=== PATIENT | female | born 1975 | race Caucasian/White ===

== ENCOUNTER 2021-10-07 18:22 | Emergency (ER) | payer MEDICAID ==
[~2021-10-07] VITALS: Ht 160 cm; Wt 70.5 kg
[~2021-10-07 18:22] MED LIST: ALBU8HFA PO
[2021-10-07 21:54] VITALS: BP 142/87
== END 2021-10-07 21:56 | disposition home or self-care (01) ==
LOC: ER 18:23
DX: J70.5 Respiratory conditions due to smoke inhalation (principal); Z88.5 Allergy status to narcotic agent
CPT/HCPCS: 71045; 99283

== ENCOUNTER 2022-06-13 12:13 | Emergency (ER) | payer MEDICAID ==
[~2022-06-13] VITALS: Ht 160 cm; Wt 70.5 kg
[2022-06-13 12:22] VITALS: BP 127/74
[2022-06-13] MEDS ORDERED: OFLO5DRO LEFTEYE (13:36)
== END 2022-06-13 13:56 | disposition home or self-care (01) ==
LOC: ER 12:14
DX: H10.89 Other conjunctivitis (principal); R51.9 Headache, unspecified; Z88.8 Allergy status to other drugs, medicaments and biological substances; Z79.2 Long term (current) use of antibiotics
CPT/HCPCS: 99283

== ENCOUNTER 2023-07-09 13:42 | Emergency (ER) | payer MEDICAID ==
[~2023-07-09] VITALS: Ht 160 cm; Wt 77.9 kg
[2023-07-09 13:42] VITALS: BP 143/65; PULSE 74; RESP 16; TEMP 98.2; O2SAT 100
[2023-07-09 14:00] LABS: BILIRUBIN,URINE NEGATIVE (Neg); CLARITY,URINE SLIGHTLY CLOUDY (Clear); COLOR,URINE YELLOW (Yellow); GLUCOSE, URINE NEGATIVE (Neg); KETONES,URINE NEGATIVE (Neg); LEUKOCYTE ESTERASE ,URINE LARGE (Neg); NITRITES, URINE NEGATIVE (Neg); OCCULT BLOOD,URINE TRACE-INTACT (Neg); PROTEIN,URINE NEGATIVE (Neg); UROBILINOGEN,URINE 0.2 E.U/dL (0.2-1.0)
[2023-07-09 14:03] LABS: URINE HCG NEGATIVE (NEG)
[2023-07-09 14:04] LABS: UA COLLECTION TYPE CLN CATCH MIDSTREAM
[2023-07-09 14:09] LABS: BACTERIA,URINE FEW /HPF (Neg); RBC,URINE 0-2 /HPF (0-2); SQUAMOUS EPITHELIAL CELL,UR MODERATE /LPF (FEW); WBC,URINE TNTC /HPF (0-4)
[2023-07-09 14:10] LABS: WBC CLUMPS,URINE MANY /HPF (NEGATIVE)
[2023-07-09 14:14] LABS: BASOPHILS % (AUTO) 0.6 % (0-1); EOSINOPHILS # (AUTO) 0.1 X10'3 (0-0.9); HEMATOCRIT 42.8 % (35.0-45.0); HEMOGLOBIN 14.3 g/dl (12.0-16.0); LYMPHOCYTES # (AUTO) 1.5 X10'3 (1.1-4.8); LYMPHOCYTES % (AUTO) 25.4 % (21-51); MEAN CORPUSCULAR HEMOGLOBIN 29.2 PG (27.0-31.0); MEAN CORPUSCULAR HGB CONC 33.5 g/dL (33.0-36.5); MEAN CORPUSCULAR VOLUME 87.1 FL (78-98); MEAN PLATELET VOLUME 8.9 FL (7.4-10.4); MONOCYTES # (AUTO) 0.4 X10'3 (0-0.9); NEUTROPHILS # (AUTO) 3.9 X10'3 (1.8-7.7); PLATELET COUNT 266 X10'3 (140-440); RED BLOOD COUNT 4.91 X10'6 (4.20-5.60); RED CELL DISTRIBUTION WIDTH 14.2 % (11.5-14.5)
[2023-07-09 14:24] LABS: ALANINE AMINOTRANSFERASE 35 U/L (12-78); ALBUMIN 4.2 G/DL (3.4-5.0); ALBUMIN/GLOBULIN RATIO 1.1 (1.1-1.5); ALKALINE PHOSPHATASE 121 IU/L (46-116); ANION GAP 10 (8-16); ASPARTATE AMINO TRANSFERASE 22 U/L (10-37); BILIRUBIN,TOTAL 0.6 MG/DL (0.1-1.0); BLOOD UREA NITROGEN 12 MG/DL (7-18); BUN/CREATININE RATIO 14.6 (10.0-20.0); CALCIUM 9.6 MG/DL (8.5-10.1); CHLORIDE 101 MMOL/L (99-107); CREATININE 0.82 MG/DL (0.40-0.90); GLUCOSE 89 MG/DL (70-104); LIPASE 86 U/L (16-77); POTASSIUM 3.7 MMOL/L (3.5-5.1); SODIUM 138 MMOL/L (135-145); TOTAL PROTEIN 8.1 G/DL (6.4-8.2); eCRCL 68 ML/MIN; eGFR 74 ML/MIN
[2023-07-09] MEDS ORDERED: NITR100C6 PO (16:12)
== END 2023-07-09 16:36 | disposition home or self-care (01) ==
LOC: ER 13:42
DX: N39.0 Urinary tract infection, site not specified (principal); Z88.5 Allergy status to narcotic agent; Z79.899 Other long term (current) drug therapy
CPT/HCPCS: 36415; 80053; 81001; 81025; 83690; 85025; 87088; 99284

== ENCOUNTER 2025-02-01 13:51 | Emergency (ER) | payer MEDICAID ==
[~2025-02-01] VITALS: Ht 160 cm; Wt 63.8 kg
[~2025-02-01 13:51] MED LIST changes: +NITR100C6 PO
[2025-02-01 13:52] VITALS: BP 154/77; PULSE 76; TEMP 97.4; O2SAT 100
--- NOTE | 2025-02-01 14:18 | Physician Documentation ---
History of Present Illness ~ Chief Complaint: Rib pain Stated Complaint: RIB PAIN Time Seen by MD: 13:54 Source: patient Mode of Arrival: POV Exam Limitations: no limitations HPI 50-year-old female with complaints of right-sided rib pain after having a fall a few days ago into a window sill. Patient states it has had some pain but today with a certain movement noticed and felt a crack and then sudden shortness of breath. Tetanus within 5 Years?: No Allergies: Coded Allergies: oxycodone (Verified Allergy, Unknown, 06/13/22) Active Prescriptions See Medication Reconciliation Form. Medication Reconciliation Scheduled Nitrofurantoin Monohyd/M-Cryst (Macrobid 100 mg Capsule), 1 CAP PO Q12H Scheduled PRN albuterol inhaler (Pro-Air Inhaler), 1-2 PUFFS PO Q4H PRN for SOB or wheezing Past Medical History Past Medical History: No Pertinent History Past Surgical History: no surgical history Alcohol Use: None Drug Use: none Lives In: Home Occupation: employed Review of Systems All Other Systems at this time: Reviewed and Negative Musculoskeletal: Reports: see HPI Physical Exam Vital Signs: RN Vital Signs have been reviewed: Yes, Temperature: 97.4, Source: Temporal, Heart Rate: 76, Respiratory Rate: 15, BP: 154/77, Pulse Oximetry: 100, Weight: 63.750 Physical Exam General: Alert, no apparent distress. Neck: Full range of motion. Respiratory: Lungs clear, no respiratory distress. Chest: No accessory muscle use. Obvious deformity tenderness to the right anterior chest under the breast. Cardiovascular: Regular rate and rhythm, no murmurs. Neurologic: Oriented x4. Psychiatric: Normal mood and affect. Skin: Normal color, warm and dry. No edema, no ecchymosis. Progress Results/Orders Results/Orders Orders - GRICELDA LANTIGUA GEOPHYSICAL E LOGGER Ribs,Unilat (02/01/25 13:55) Completed Orders - GRICELDA LANTIGUA GEOPHYSICAL E LOGGER Ribs,Unilat (02/01/25 13:55) Vital Signs 02/01/25 13:52 Temp 97.4 Pulse 76 Resp 15 B/P (MAP) 154/77 Pulse Ox 100 Medical Decision Making Findings Three ordered to evaluate for rib fracture. Discussed rib contusion as another differential. Differential Dx:Considerations: Include: Chest wall contusion, Pneumothorax, Pulmonary contusion, Rib fracture, Other Departure Time of Disposition: 16:00 Disposition: 01 HOME / SELF CARE / HOMELESS Impression: Primary Impression: Rib pain Condition: Stable Discharge Instructions: Rib Contusion Additional Instructions: Take Tylenol and ibuprofen as needed for [id number] pain use ice or heat for comfort. Follow up with primary care rib contusions can take several weeks to fully recover Referrals: NO PRIMARY CARE PROVIDER (PCP) Prescriptions Lidocaine (Lidoderm) 5 % Adh..patch 1 PATCH TOP DAILY for 30 Days, #30 PATCH 0 Refills may wear up to 12 hours Prov: GRICELDA LANTIGUA NP 02/01/25 Ibuprofen (Ibu) 800 Mg Tablet 1 TAB PO Q8H for 7 Days, #21 TAB 0 Refills Prov: GRICELDA LANTIGUA NP 02/01/25 Education Educated: Patient Educated regarding: diagnosis, treatment, need for follow up Signature Scribe Signature: No scribe Attestation: The note accurately reflects work and decisions made by me.Gricelda CHRISTIE 02/01/25 14:18 GRICELDA LANTIGUA NP Feb 01, 2025 14:18
[2025-02-01] MEDS ORDERED: LIDO-52 TOP (16:01)
[2025-02-01] MEDS ORDERED: IBUP-864 PO (16:01)
--- NOTE | 2025-02-01 16:01 | RADIOLOGY REPORT ---
CHEST RADIOGRAPH Indication: RIB PAIN Technique: DI RIBS,UNILAT Comparison: None FINDINGS: The cardiac silhouette is unremarkable. The lungs demonstrate no pulmonary airspace consolidation. Th e pulmonary vasculature is unremarkable. There is no pleural effusion. There is no pneumothorax. No radiographic evidence for right rib fracture IMPRESSION: No pulmonary airspace consolidation.
[2025-02-01] MEDS ORDERED: ketorolac trometh 30MG/ML vial 30 MG/ML VIAL IV ONE (16:05)
[2025-02-01 16:13] VITALS: RESP 16
[2025-02-01] MEDS: ketorolac trometh 30MG/ML vial 30 MG/ML VIAL IM ONE (16:13)
== END 2025-02-01 16:15 | disposition home or self-care (01) ==
LOC: ER 13:52
DX: R07.81 Pleurodynia (principal); Z88.5 Allergy status to narcotic agent; Z79.899 Other long term (current) drug therapy
CPT/HCPCS: 71100; 96372; 99283; J1885

== ENCOUNTER 2025-03-04 08:30 | Day surgery (SDC) | payer MEDICAID ==
[2025-03-04] VITALS (9 sets, daily range): BP systolic 100–133; BP diastolic 47–65; PULSE 57–72; RESP 12–16; O2SAT 98–100
[~2025-03-04 08:30] MED LIST changes: -ALBU8HFA PO; +ESTR1PAT97; -NITR100C6 PO
[2025-03-04] MEDS ORDERED: MIDAZolam 1 MG/ML 5ML VIAL ONE (10:09)
[2025-03-04] MEDS ORDERED: fentaNYL/PF 50MCG/1 ML 2ML syringe ONE (10:09)
[2025-03-04] MEDS ORDERED: LIDOcaine 2% Viscous 15ml cup ONE (10:23)
== END 2025-03-04 11:15 | disposition home or self-care (01) ==
LOC: GI LAB 08:30
PROVIDERS: ATTEND Internal Medicine Gastroenterology
DX: K92.1 Melena (principal); K57.30 Diverticulosis of large intestine without perforation or abscess without bleeding
CPT/HCPCS: 45378; 99152; J2250; J3010; J7030; Z7512; 99153; A4620

== ENCOUNTER 2025-06-29 14:07 | Emergency (ER) | payer SELFPAY ==
[~2025-06-29] VITALS: Ht 160 cm; Wt 72.9 kg
--- NOTE | 2025-06-29 14:26 | Physician Documentation ---
History of Present Illness ~ Stated Complaint: BACK PAIN Time Seen by MD: 16:03 HPI Year old female presents to the ED with a complaint of right flank pain that radiates down her legs which a cure the occurred morning without injury states he has nausea and threw up prior to arrival. Denies any history of kidney stones denies any dysuria or burning urination Day of Onset: Jun 29, 2025 Medication Reconciliation Allergies: Coded Allergies: oxycodone (Verified Allergy, Unknown, 06/29/25) Scheduled Sildenafil Citrate (Sildenafil), 2 TAB PO DAILY Miscellaneous Medications Estradiol (Estradiol), (Reported) Past Medical History Past Medical History: No Pertinent History Past Surgical History: no surgical history Alcohol Use: None Drug Use: none Lives In: Home Occupation: employed Review of Systems All Other Systems at this time: Reviewed and Negative ROS As stated above in the HPI, otherwise all systems are reviewed and negative. Physical Exam Physical Exam Physical Exam General: Alert, no apparent distress. Respiratory: Lungs clear, no respiratory distress. Cardiovascular: Regular rate and rhythm, no murmurs. Back: Has a CVA tenderness right side Extremities: Normal range of motion, no deformity. Neurologic: Oriented x4. Psychiatric: Normal mood and affect. Skin: Normal color, warm and dry. No edema, no ecchymosis. Progress Results/Orders Results/Orders Orders - DIMITRY RODRIGUEZ [employer] REPORT DEVELOPER Ct Abdomen Pelvis (06/29/25 14:50) Completed Orders - DIMITRY RODRIGUEZ [employer] REPORT DEVELOPER Ct Abdomen Pelvis (06/29/25 14:50) Hcg, Ur Ql (06/29/25 14:23) Cbc/Diff (06/29/25 14:23) BMP (06/29/25 14:23) Lipase (06/29/25 14:23) CMP (06/29/25 14:23) Ketorolac Trometh 30mg/Ml Vial (Toradol (06/29/25 14:25) Ondansetron Inj. (Zofran 4mg/2ml Vial) (06/29/25 14:50) Normal Saline 1000ml (0.9% Sodium Chlori (06/29/25 14:50) Ua W/Microscopic, Cult If Ind (06/29/25 14:30) Vital Signs 06/29/25 06/29/25 06/29/25 06/29/25 14:24 14:32 14:57 15:01 Temp 97.5 Pulse 80 80 Resp 18 18 20 20 B/P (MAP) 135/81 156/84 (108) Pulse Ox 100 100 O2 Flow Rate 0 0 06/29/25 06/29/25 15:51 16:42 Temp 98.0 Pulse 82 80 Resp 14 16 B/P (MAP) 121/63 (82) 130/69 Pulse Ox 100 100 O2 Flow Rate 0 Laboratory Tests Test 06/29/25 14:30 06/29/25 14:34 Urine Specimen Description Cln catch midstream Urine Color Yellow Urine Clarity Cloudy Urine pH 5.5 Urine Specific Raymond >=1.030 Urine Protein 30 H Urine Glucose (UA) Negative Urine Ketones 15 H Urine Occult Blood Large H Urine Nitrite Negative Urine Bilirubin Small Urine Urobilinogen 0.2 Urine Leukocyte Esterase Negative Urine RBC Tntc Urine WBC 0-4 Urine Squamous Epithelial Cells Moderate Urine Bacteria Few Urine Mucus Many Urine Culture Indicated Not ind Volume Urine Centrifuged 10 ml Urine HCG, Qualitative Negative Urine Comment White Blood Count 5.5 Red Blood Count 4.85 Hemoglobin 14.1 Hematocrit 42.5 Mean Corpuscular Volume 87.6 Mean Corpuscular Hemoglobin 29.1 Mean Corpuscular Hemoglobin Concent 33.3 Red Cell Distribution Width 13.5 Platelet Count 257 Mean Platelet Volume 8.3 Neutrophils (%) (Auto) 48.8 Lymphocytes (%) (Auto) 43.5 Monocytes (%) (Auto) 5.3 Eosinophils (%) (Auto) 1.7 Basophils (%) (Auto) 0.7 Neutrophils # (Auto) 2.7 Lymphocytes # (Auto) 2.4 Monocytes # (Auto) 0.3 Eosinophils # (Auto) 0.1 Basophils # (Auto) 0.0 CBC Comment Sodium Level 138 Potassium Level 3.1 L Chloride Level 103 Carbon Dioxide Level 24.9 Anion Gap 10 Blood Urea Nitrogen 14 Creatinine 0.91 H Estimated GFR/1.73 m2 65 BUN/Creatinine Ratio 15.4 Glucose Level 126 H Calcium Level 9.1 Total Bilirubin 0.7 Aspartate Amino Transf (AST/SGOT) 12 Alanine Aminotransferase (ALT/SGPT) 27 Alkaline Phosphatase 103 Total Protein 7.6 Albumin 4.4 Globulin 3.2 Albumin/Globulin Ratio 1.4 Lipase 37 Chemistry Comments Medical Decision Making Additional information obtaine: old records Findings Patient the presents with a 3 mm kidney stone with mild to moderate hydronephrosis per the CT read. After receiving Toradol fluids in his in his Zofran she reports greatly improved symptoms advise her that she will likely pass the stone however she was also advised that if it persists she can get a Urology referral from her primary care I will discharge her with tamsulosin an NSAID with instructions to increase fluid intake Differential Dx:Considerations: Bowel obstruction, Fracture, Pancreatitis, Urinary obstruction, Urolithiasis Departure Disposition: HOME / SELF CARE / HOMELESS Impression: Primary Impression: Calculus of kidney Condition: Improved Discharge Instructions: Kidney Stones Additional Instructions: Instructions take ibuprofen and the prescribed medication to help with passing the small kidney stone problems follow up with the primary care and obtain a referral to go to Urology Referrals: NO PRIMARY CARE PROVIDER (PCP) Prescriptions Sildenafil Citrate (SILDENAFIL) 20 Mg Tablet 2 TAB PO DAILY for 30 Days, #60 TAB 0 Refills Prov: DIMITRY RODRIGUEZ NP 06/29/25 Education Educated: Patient Educated regarding: diagnosis Signature Scribe Signature: o Attestation: Scribed for Dimitry Rodriguez Baker Bench by Dimitry Chandler NP . 06/29/25 23:21 DIMITRY RODRIGUEZ NP Jun 29, 2025 14:26
[2025-06-29] MEDS: ketorolac trometh 30MG/ML vial 30 MG/ML VIAL IM ONE (14:32)
--- NOTE | 2025-06-29 15:05 | RADIOLOGY REPORT ---
EXAM: CT CT ABDOMEN PELVIS History: right flank pain Comparison Study: None TECHNIQUE: Multidetector spiral CT of the abdomen was performed from lung bases to pubic symphysis. Imaging was performed without IV contrast. Axial, coronal and sagittal multiplanar reformats were obtained from the axial data set by the technologist. Radiation Dose : 1. Abdomen/Pelvis: CTDIvol 23 mGy, DLP 1120 mGy*cm. FINDINGS: Evaluation of solid organs is limited due to lack of intravenous contrast use. Lung Bases: No acute or significant lung base finding. Normal heart size. No pleural or pericardial effusion. Liver: The liver is normal in size. No focal lesions. Gallbladder and Biliary Tree: Unremarkable Spleen: Unremarkable Pancreas: The pancreas is grossly normal in appearance. Adrenal Glands: Unremarkable Kidneys: 3 mm stone in the right UVJ is causing mild right-sided hydroureteronephrosis. Bladder: Grossly unremarkable for degree of distention. Bowel: The stomach is grossly normal in appearance. Small bowel and colon are normal in caliber and distribution. Dilated appendix measuring up to 1 cm with minimal wall thickening but no significant fat stranding. Ascites: Absent Lymphadenopathy: No mesenteric, retroperitoneal or periportal lymphadenopathy. Abdominal Wall and Mesentery: Unremarkable. Vasculature: The visualized abdominal aorta is normal in size and caliber. Evaluation of abdominal and pelvic vessels is limited due to lack of intravenous contrast. Pelvic Organs: Unremarkable Musculoskeletal: No aggressive focal bony lesions, acute fractures or dislocation. IMPRESSION: 1. 3 mm stone in the right UVJ is causing mild right-sided hydroureteronephrosis. 2. Dilated appendix measuring up to 1 cm with minimal wall thickening but no significant fat stranding. Mild/developing appendicitis is not excluded. Consider repeat CT with PO contrast. Radiation optimization: All CT scans at this facility use at least one of these dose optimization techniques: automated exposure control mA and/or kV adjustment per patient size (includes targeted exams where dose is matched to clinical indication) or iterative reconstruction.
[2025-06-29 15:09] LABS: MEAN PLATELET VOLUME 8.3 FL (7.4-10.4); RED CELL DISTRIBUTION WIDTH 13.5 % (11.5-14.5)
[2025-06-29] MEDS: normal saline 1000ML IV soln IVB ONE (15:19)
[2025-06-29 15:20] LABS: CREATININE 0.91 MG/DL (0.40-0.90); TOTAL CARBON DIOXIDE 24.9 MMOL/L (24-32); eCRCL 60 ML/MIN; eGFR 65 ML/MIN
[2025-06-29] MEDS: ondansetron/PF 4mg/2ml inj IV ONE (15:20)
[2025-06-29] MEDS ORDERED: SILD20TA42 PO (16:13)
[2025-06-29 16:22] LABS: URINE HCG NEGATIVE (NEG)
[2025-06-29 16:24] LABS: LEUKOCYTE ESTERASE ,URINE NEGATIVE (Neg); NITRITES, URINE NEGATIVE (Neg); OCCULT BLOOD,URINE LARGE (Neg)
[2025-06-29 16:29] LABS: UA COLLECTION TYPE CLN CATCH MIDSTREAM
[2025-06-29 16:30] LABS: MUCUS STRANDS MANY /LPF (Neg); SQUAMOUS EPITHELIAL CELL,UR MODERATE /LPF (FEW)
[2025-06-29 16:42] VITALS: BP 130/69; PULSE 80; RESP 16; TEMP 98; O2SAT 100
== END 2025-06-29 16:48 | disposition home or self-care (01) ==
LOC: ER 14:07
DX: N20.0 Calculus of kidney (principal); Z88.5 Allergy status to narcotic agent; Z79.899 Other long term (current) drug therapy
CPT/HCPCS: 36415; 74176; 80053; 81001; 81025; 83690; 85025; 96361; 96372; 96374; 99285; J1885; J2405; J7030